=== PATIENT | female | born 1965 | race Caucasian/White ===

== ENCOUNTER 2024-01-04 01:04 | Outpatient (CLI) | payer MEDICAID, SELFPAY ==
--- NOTE | 2024-01-04 07:45 | DI.CT_ITS ---
Exam(s) CT CHEST W EXAM: CT CHEST W CLINICAL HISTORY: left sided chest pain,r07.9. TECHNIQUE: Multi planar reconstructions were performed. CONTRAST MATERIAL: Omnipaque 350; 75 cc COMPARISON: No exams were available for comparison FINDINGS: CHEST: LUNGS: No infiltrates nor pleural effusions. No ominous pulmonary nodules. PULMONARY ARTERIES: No intraluminal filling defects evident to suggest pulmonary emboli MEDIASTINUM: There is no hilar nor mediastinal adenopathy. Visualized thyroid unremarkable. CARDIAC: Heart size is normal. There is no pericardial effusion.Caliber of the thoracic aorta is wit hin normal limits. No evidence of aortic dissection. VISUALIZED UPPER ABDOMEN:There are no significant adrenal masses. Gallbladder surgically absent. OSSEOUS: No significant osseous lesions.No fractures. Schmorl's node invagination in the superior en dplate of T3 and T11 evident.. IMPRESSION: 1. No evidence of aortic dissection nor pericardial effusion. 2. No evidence of acute pulmonary emboli 3. Lungs are clear and there are no pleural effusions. Other findings as above. RADIATION DOSE DELIVERED: 131.79mGy.cm Total DLP DATA REPOSITORY: All CT scans at this facility are submitted to the National Radiology Data Registry (NRDR) Dose Index Registry (DIR) with the [employer] ([employer]). RADIATION OPTIMIZATION: All CT scans at this facility use at least one of these dose optimization te chniques: automated exposure control; mA and/or kV adjustment per patient size (includes targeted exa ms where dose is matched to clinical indication); or iterative reconstruction.
[2024-01-04] MEDS: Omnipaque 350 MG/ML 500 ML BTL-Imaging package 70 ML IJ (13:24)
[2024-01-04] MEDS: Normal Saline - Diluent 50 ML VIAL IJ (13:24)
== END 2024-01-04 01:24 ==
LOC: DI 01:04
PROVIDERS: Visit Provider Physician Assistant
DX: R07.9 Chest pain, unspecified (principal)
CPT/HCPCS: 71260

== ENCOUNTER 2024-04-15 01:09 | Outpatient (CLI) | payer MEDICAID, SELFPAY ==
[2024-04-15] MEDS: Inhaler, Assist Device 1 EACH MC (11:34)
[2024-04-15] MEDS: Levalbuterol HFA 15 GM INH 4 PUFF IH (11:35)
--- NOTE | 2024-04-19 15:41 | W.PFT ---
Date of service: 04/15/24 Time of Service: 10:07 Pulmonary Function Test Result Indications: COPD Interpretation Spirometry: There is mild airflow limitation. No significant bronchodilator response. Lung Volumes: There is air trapping and hyperinflation. Diffusion Capacity: Normal diffusion Airway Pressure: Increased airways resistance Impression Mild airflow limitation with air trapping and a normal diffusion. Clinical Correlation therefore is recommended.
== END 2024-04-15 01:10 | disposition home or self-care (01) ==
LOC: RT 01:09
PROVIDERS: PCP Nurse Practitioner Family; Visit Provider Student in an Organized Health Care Education/Training Program
DX: J44.9 Chronic obstructive pulmonary disease, unspecified (principal)
CPT/HCPCS: 94060; 94726; 94729

== ENCOUNTER 2024-04-19 18:04 | Outpatient (REF) | payer MEDICAID, SELFPAY ==
[2024-04-19 17:04] LABS: ALT 24 U/L (14-59); AST 21 U/L (15-37); Albumin 4.6 g/dL (3.4-5.0); Alkaline Phosphatase 72 U/L (46-116); Anion Gap 9.5 mmol/L (3-11); BUN 9 mg/dL (7-18); Bilirubin, Total 0.51 mg/dL (0.2-1.0); CO2 30.5 mmol/L (21.0-32.0); CREATININE 0.8 mg/dL (0.55-1.02); Calcium 10.6 mg/dL (8.5-10.1); Calculated LDL 127 mg/dL (<100); Chloride 106 mmol/L (98-107); Cholesterol 216 mg/dL (<200); Estimated GFR 85.35 (mL/min/1.73m2); Glucose 97 mg/dL (74-106); HDL Cholesterol 76 mg/dL (40-60); Potassium 4.4 mmol/L (3.5-5.1); Sodium 146 mmol/L (136-145); TSH (W/Ref FT4) 2.76 uIU/mL (0.36-3.74); Total Protein 7.7 g/dL (6.4-8.2); Triglyceride 69 mg/dL (<150)
[2024-04-20 10:30] LABS: Hepatitis C Ab w Rflx HCV PCR Negative (Negative)
[2024-04-20 10:39] LABS: HIV-1/2 Ag & Ab Screen Negative (Negative)
[2024-04-20 10:47] LABS: HBs Antibody, Quant <3.1 mIU/mL (See Note); Hep B Surface Ab Negative (See Note); Hepatitis B Core Antibody Negative (Negative); Hepatitis B Surface Antigen Negative (Negative)
== END 2024-04-19 18:05 | disposition home or self-care (01) ==
LOC: LBN 18:04
PROVIDERS: PCP Nurse Practitioner Family; Visit Provider Nurse Practitioner Family
DX: Z13.220 Encounter for screening for lipoid disorders (principal); Z11.59 Encounter for screening for other viral diseases; Z11.4 Encounter for screening for human immunodeficiency virus [HIV]; E03.9 Hypothyroidism, unspecified
CPT/HCPCS: 80053; 80061; 86704; 86706; 86803; 87340; 87389; 84443

== ENCOUNTER 2024-10-18 12:33 | Outpatient (REF) | payer MEDICAID, SELFPAY ==
[2024-10-18 13:12] LABS: Glucose Negative (Negative)
[2024-10-18 13:32] LABS: C & S Indicated? No; RBC 0-2 HPF (0-2); WBC Negative HPF (0-5)
== END 2024-10-18 12:34 | disposition home or self-care (01) ==
LOC: LBN 12:33
PROVIDERS: PCP Nurse Practitioner Family; Visit Provider Nurse Practitioner Family
DX: R82.90 Unspecified abnormal findings in urine (principal); R30.0 Dysuria
CPT/HCPCS: 81003; 81015